=== PATIENT | male | born 2000 | race Caucasian/White ===

== ENCOUNTER 2018-08-30 10:33 | Emergency (ER) | payer OTHER ==
--- NOTE | 2018-08-30 10:48 | EDPHY ---
H & P Stated Complaint: CP Time Seen by Provider: 08/30/18 10:38 HPI/ROS: CHIEF COMPLAINT: Intermittent chest pain x2 months HISTORY OF PRESENT ILLNESS: 18-year-old male, generally healthy, in the ER via private vehicle with mother complaining of intermittent chest pain for the past 2 months. He describes intermittent left chest dull ache with extension to his left arm. This will typically occur while at rest. It does not occur with activity or with exertion. He is particularly concerned because his father had his 1st NE at age 31. The patient last had an episode like this approximately midnight last night and symptoms lasted 20 min. This occurred while he was at rest watching TV.. He is currently asymptomatic. Denies: Dyspnea, abdominal pain, syncope or near syncope, chest pain with exertion, dyspnea with exertion beyond that expected with exertion. REVIEW OF SYSTEMS: 10 systems reviewed and negative with the exception of the elements mentioned in the history of present illness PAST MEDICAL & SURGICAL HISTORY: No pertinent medical or surgical history SOCIAL HISTORY: Daily marijuana smoking. No tobacco smoking. No cocaine use. Student. FAMILY HISTORY:father with 1st NE at age 31 with no history of illicit drug use at that time PHYSICAL EXAM (Prior to examination, patient consented to physical exam, hands were washed and my usual and customary physical exam procedures followed) 1) GENERAL: Well-developed, well-nourished, alert and oriented. Appears to be in no acute distress. 2) HEAD: Normocephalic, atraumatic 3) HEENT: Pupils equal, round, reactive to light bilaterally. Sclera anicteric. Nasopharynx, oropharynx, clear, no lesions. Moist Mucous membranes. 4) NECK: Full range of motion, no meningeal signs. No carotid bruit 5) LUNGS: Clear auscultation bilaterally, no wheezes, no rhonchi, no retractions. 6) HEART: Regular rate and rhythm, no murmur, no heave, no gallop. 7) ABDOMEN: No guarding, no rebound, no focal tenderness, negative McBurney's, negative Carlos's, negative Rovsing's, negative peritoneal sign, 8) MUSCULOSKELETAL: Moving all extremities, no focal areas of tenderness, no obvious trauma. No peripheral edema or discoloration. 9) BACK: No CVA tenderness, no midline vertebral tenderness, no fluctuance, no step-off, no obvious trauma, no visual or palpable abnormality. 10) SKIN: No rash, no petechiae. 11) Psychiatric: Patient is oriented X 3, there is no agitation. DIFFERENTIAL DIAGNOSIS: In no particular order, including but not limited to myocardial ischemia, pulmonary embolus, chest wall pain, pleural inflammation and pulmonary infectious causes. - Medical/Surgical History Other PMH: Denies Constitutional: Initial Vital Signs Heart Rate 80 08/30/18 10:35 Respiratory Rate 18 08/30/18 10:35 Blood Pressure 138/84 H 08/30/18 10:35 O2 Sat (%) 95 08/30/18 10:35 O2 Delivery Mode Room Air Allergies/Adverse Reactions: No Known Allergies Allergy (Unverified 08/30/18 10:36) Home Medications: Medication Instructions Recorded NK [No Known Home Meds] 08/30/18 Medical Decision Making - Diagnostics Imaging Results: Imaging Impressions Chest X-Ray 08/30/18 10:43 Impression: Mild peribronchial thickening which can be seen with airways disease /bronchitis. Images reviewed myself ED Course/Re-evaluation: 11:37 a.m.: Patient has been re-evaluated with serial exams in the case discussed with secondary supervising physician Dr. Jerzy Flores in the ER. Patient's mother is at bedside as well. He lives in the [facility] area is returning for the summer and approximately 4 days. At this time I think that acute NE is less than likely. Doubt PE. We had a lengthy discussion however given his family history, notably of his father having 1st NE at age 31 in absence of any illicit drug use at that time, about the importance of cardiac Health and importance of close follow-up, notably controlling issues such as blood pressure, lipids. I recommend follow up with Cardiology input a follow up with [place] [facility] however he informs me that he is returning for the summer and will plan on seeing welfare specialist in [facility] area. Patient feels comfortable being discharged. All questions and concerns addressed by myself. Patient given my usual and customary discharge precautions and instructions regarding their clinical impression. - Data Points Laboratory Results: Laboratory Results 08/30/18 10:50 08/30/18 10:50 08/30/18 08/30/18 08/30/18 10:51 10:50 10:50 WBC 5.30 10^3/uL 10^3/uL (3.80-9.50) RBC 6.18 10^6/uL 10^6/uL (4.40-6.38) Hgb 17.9 g/dL H g/dL (13.7-17.5) Hct 53.1 % H % (40.0-51.0) MCV 85.9 fL fL (81.5-99.8) MCH 29.0 pg pg (27.9-34.1) MCHC 33.7 g/dL g/dL (32.4-36.7) RDW 13.1 % % (11.5-15.2) Plt Count 172 10^3/uL 10^3/uL (150-400) MPV 10.9 fL fL (8.7-11.7) Neut % (Auto) 44.7 % % (39.3-74.2) Lymph % (Auto) 37.9 % % (15.0-45.0) Coleman % (Auto) 15.3 % H % (4.5-13.0) Eos % (Auto) 1.1 % % (0.6-7.6) Baso % (Auto) 0.4 % % (0.3-1.7) Nucleat RBC Rel Count 0.0 % % (0.0-0.2) Absolute Neuts (auto) 2.37 10^3/uL 10^3/uL (1.70-6.50) Absolute Lymphs (auto) 2.01 10^3/uL 10^3/uL (1.00-3.00) Absolute Monos (auto) 0.81 10^3/uL H 10^3/uL (0.30-0.80) Absolute Eos (auto) 0.06 10^3/uL 10^3/uL (0.03-0.40) Absolute Basos (auto) 0.02 10^3/uL 10^3/uL (0.02-0.10) Absolute Nucleated RBC 0.00 10^3/uL 10^3/uL (0-0.01) Immature Gran % 0.6 % % (0.0-1.1) Immature Gran # 0.03 10^3/uL 10^3/uL (0.00-0.10) Sodium 141 mEq/L mEq/L (135-145) Potassium 4.2 mEq/L mEq/L (3.5-5.2) Chloride 105 mEq/L mEq/L (97-110) Carbon Dioxide 26 mEq/l mEq/l (22-31) Anion Gap 10 mEq/L mEq/L (6-14) BUN 13 mg/dL mg/dL (7-23) Creatinine 0.9 mg/dL mg/dL (0.7-1.3) Estimated GFR > 60 Glucose 100 mg/dL mg/dL (70-100) Calcium 9.5 mg/dL mg/dL (8.5-10.4) POC Troponin I 0.00 ng/mL ng/mL (0.00-0.08) Point of Care Test Results: Chemistry 08/30/18 10:51 POC Troponin I 0.00 ng/mL ng/mL (0.00-0.08) Departure - Departure Disposition: Home, Routine, Self-Care Clinical Impression: Chest pain Condition: Good Instructions: Chest Pain (ED) Additional Instructions: Seek medical attention if you develop new or worsening chest pain, if you develop new or worsening shortness of breath, or any other symptoms that concern you. Referrals: SHELIA MACKEY [Other] - 5-7 days, call for appt. (I also recommend that you follow-up with a welfare specialist in [facility] area. I have given you the name of a welfare specialist in [place] however a welfare specialist in [facility] may be more convenient for you.)
[2018-08-30 11:02] LABS: PLATELET COUNT 172 10^3/uL (150-400)
[2018-08-30 11:51] VITALS: BP 133/84
--- NOTE | 2018-09-05 13:44 | CPEKG ---
Test Reason : OPEN Blood Pressure : / mmHG Vent. Rate : 078 BPM Atrial Rate : 077 BPM P-R Int : 161 ms QRS Dur : 098 ms QT Int : 371 ms P-R-T Axes : 049 046 049 degrees QTc Int : [address] elev, probable normal early repol pattern Confirmed by Jerzy Flores ([id number]) on 09/05/2018 1:43:55 PM Referred By: Jerzy Flores Confirmed By:Jerzy Flores
== END 2018-08-30 11:50 | disposition home or self-care (01) ==
DX: R07.89 Other chest pain (principal); Z82.49 Family history of ischemic heart disease and other diseases of the circulatory system
CPT/HCPCS: 84484-ER